=== PATIENT | female | born 1985 | race Caucasian/White ===

== ENCOUNTER → 2017-11-09 08:47 | Outpatient (CLI) | payer OTHER, SELFPAY ==
[2017-11-09 10:48] LABS: Hemoglobin 11.9 g/dl (12.0-15.0); Mean Corpuscular Hgb 30.6 pg (27.0-32.0); Mean Platelet Vol. 11.7 fl (6.2-12.0); Platelet Count 240 K/mm3 (150-450); RBC Distribution Width CV 13.8 % (11.6-14.6); RBC Distribution Width SD 44.2 fl (35.1-43.9); Red Blood Count 3.89 M/mm3 (4.2-5.4)
[2017-11-09 10:49] LABS: Scan Indicated on CBC? Y/N NO
[2017-11-09 10:53] LABS: Glucose Challenge Gest 1H 50g 67 mg/dL (70-140)
== END ==
PROVIDERS: Visit Provider Obstetrics & Gynecology
DX: Z34.83 Encounter for supervision of other normal pregnancy, third trimester (principal)
CPT/HCPCS: 36415; 82950; 85027; 86850

== ENCOUNTER → 2018-01-01 10:21 | Outpatient (CLI) | payer OTHER, SELFPAY ==
[2018-01-01 13:14] LABS: Probe Check PASS
[2018-01-01 13:15] LABS: Group B Strep DNA By PCR POSITIVE (Negative)
== END ==
PROVIDERS: Visit Provider Obstetrics & Gynecology
DX: Z36.85 Encounter for antenatal screening for Streptococcus B (principal)
CPT/HCPCS: 87653

== ENCOUNTER 2018-01-14 23:43 | Inpatient (IN) | payer OTHER, SELFPAY ==
[2018-01-14 23:20] VITALS: BMI 28.0
[2018-01-14 23:37] LABS: ROM Internal Control Test YES-OK TO RESULT pt. (Internal QC); ROM Patient Test POSITIVE (Negative)
[2018-01-15 00:22] LABS: Hematocrit 35.7 % (37-47); Hemoglobin 12.3 g/dl (12.0-15.0); Mean Corp Hgb Conc 34.5 g/gl (32-36); Mean Corpuscular Hgb 30.9 pg (27.0-32.0); Mean Corpuscular Volume 89.7 fL (81-99); Mean Platelet Vol. 11.4 fl (6.2-12.0); Platelet Count 203 K/mm3 (150-450); RBC Distribution Width CV 13.6 % (11.6-14.6); Red Blood Count 3.98 M/mm3 (4.2-5.4); White Blood Count 12.4 K/mm3 (4.4-11.0)
[2018-01-15 00:23] LABS: Scan Indicated on CBC? Y/N NO
[2018-01-15] MEDS: Lactated Ringers 1,000 ML 50 ML IV ×3 (01:00→07:16)
[2018-01-15] MEDS: fentaNYL-bupivacaine (epidural) 100 ML BAG EPIDURAL ×3 (01:05→10:14)
[2018-01-15] MEDS: Oxytocin 30 units/NS 500 ml 30 UNITS/500 ML IV.SOLN IV (03:05)
--- NOTE | 2018-01-15 12:09 | PCM.OB.VAG ---
Vaginal Delivery Maternal Presentation: Spontaneous Rupture of Membranes 38 wk SROM Method of Induction: Pitocin Medical Reason for Induction: Premature Rupture of Membranes Amniotic Membrane Rupture Type: Spontaneous at home Amniotic Fluid Description: Clear Final GRACE: 01/29/18 Gestational age: 38 Weeks and 1 Days Date of Procedure: 01/15/18 Pre-Operative Diagnosis: 38 wk SROM Post-Operative Diagnosis: Same S/P Surgery/ Procedure Performed: Spontaneous Vaginal Delivery Type of Anesthesia: Epidural Description of Procedure: of a koenig viable male Ap 8/9 Head delivered GIANNA. nuchal cord x two reduced at delivery. OP and nares bulb suctioned after delivery. Infant to maternal abdomen. Cord clamped x two and cut. PP exam; 2nd perineal laceration. Repaired under epidural to hemostatic, intact with 3/0 vicryl Placenta delivered intact, normal appearing. 3V cord, trailing membranes. EBL 300 cc Presentation: Vertex, GIANNA Placental Delivery Description: Spontaneous, Expressed Placenta Disposition: [facility] Cord Vessel Description: 3 Vessels Nuchal Cord Compression: Without compression Cord Entanglement: Around neck x 2, loose Drain: Farris to straight drain Infant A gender: Male (1 minute): 8 (5 minute): 9 Episiotomy Description: None Laceration: Midline, Perineal Extension/lac, 2nd degree Medications given after delivery: IV Pitocin Complications: None
[2018-01-15 15:51] VITALS: BP 102/56; PULSE 72; RESP 18; TEMP 36.8; O2SAT 95
[2018-01-15] MEDS: Ibuprofen 600 MG Tablet PO ×2 (16:02→22:37)
[2018-01-15 19:42] VITALS: BP 109/51; PULSE 79; RESP 16; TEMP 36.3; O2SAT 96
[2018-01-15] MEDS: Acetaminophen 500 MG Tablet 1000 MG PO (19:43)
[2018-01-16 00:05] VITALS: BP 99/68; PULSE 76; RESP 16; TEMP 36.2
[2018-01-16] MEDS: Acetaminophen 500 MG Tablet 1000 MG PO (03:51)
[2018-01-16 04:00] VITALS: BP 91/53; PULSE 69; RESP 16; TEMP 36.3
--- NOTE | 2018-01-16 06:45 | PCM.DCVAG ---
Discharge Diet: No Restrictions Discharge Activity: May Shower, May Take a Tub Bath May resume sexual activity in: 4-6 weeks Additional Activity Instructions:: Nothing in the vagina for 4-6 weeks. You may return to work/school in 6 weeks. Additional Instructions: If you experience any of the following, contact your healthcare provider. Bleeding that soaks a pad every hour for 2 hours Fever 100.4 or higher Unrelieved abdominal pain Problems urinating (including inability to urinate or burning while urinating). Visual changes Severe headache Flu-like symptoms Pain or redness in one of both of your breasts Pain, warmth, tenderness or swelling in your legs, especially the calf area Frequent nausea and vomiting Symptoms of depression or anxiety If you experience any of the following, call 911 or go to the nearest Emergency Room. Chest pain Problems breathing Seizure activity Partial or complete paralysis of a body part, slurred speech, weakness or drooping of the face, or a sudden inability to walk or hold your balance Allergies/Adverse Reactions: Allergies No Known Allergies Allergy (Verified 01/14/18 23:37) Medications to take at Discharge Calcium Carbonate/Vitamin D3 [Calcium 500 mg Chewable Tablet] 1 each PO DAILY 01/14/18 Vits [Prenatabs FA] 1 tablet PO DAILY 01/14/18 Please Follow Up With: Erin Ballesteros MD - [phone] When: Call to make an appointment with your doctor in 6 weeks. Primary Care Physician: Care Physician,No Primary [Primary Care Provider] - Test Results: Test results from this visit will be discussed in further detail at your follow-up appointment, if applicable. Proposed Discharge Date: 01/17/18
--- NOTE | 2018-01-16 06:46 | DCINST_ITS ---
Discharge Diet: No Restrictions Discharge Activity: May Shower, May Take a Tub Bath May resume sexual activity in: 4-6 weeks Additional Activity Instructions:: Nothing in the vagina for 4-6 weeks. You may return to work/school in 6 weeks. Additional Instructions: If you experience any of the following, contact your healthcare provider. * Bleeding that soaks a pad every hour for 2 hours * Fever 100.4 or higher * Unrelieved abdominal pain * Problems urinating (including inability to urinate or burning while urinating) . * Visual changes * Severe headache * Flu-like symptoms * Pain or redness in one of both of your breasts * Pain, warmth, tenderness or swelling in your legs, especially the calf area * Frequent nausea and vomiting * Symptoms of depression or anxiety If you experience any of the following, call 911 or go to the nearest Emergency Room. * Chest pain * Problems breathing * Seizure activity * Partial or complete paralysis of a body part, slurred speech, weakness or drooping of the face, or a sudden inability to walk or hold your balance Allergies/Adverse Reactions: Allergies No Known Allergies Allergy (Verified 01/14/18 23:37) Medications to take at Discharge Calcium Carbonate/Vitamin D3 [Calcium 500 mg Chewable Tablet] 1 each PO DAILY Vits [Prenatabs FA] 1 tablet PO DAILY 01/14/18 Please Follow Up With: Erin Ballesteros MD - [phone] When: Call to make an appointment with your doctor in 6 weeks. Primary Care Physician: Care Physician,No Primary [Primary Care Provider] - Test Results: Test results from this visit will be discussed in further detail at your follow- up appointment, if applicable. Proposed Discharge Date: 01/17/18
[2018-01-16] MEDS: Ibuprofen 600 MG Tablet PO ×2 (07:02→14:33)
--- NOTE | 2018-01-16 07:14 | PCM.PN.OB ---
Subjective: PPD#1 Doing well. Minimal pain, more with nursing. baby is nursing OK but not very regularly yet. open to bottle feeding if needed. No concerns voiced. Hoping to go home today if baby is released. - Physical Exam General: Alert, Oriented x3, Cooperative, No apparent distress HEENT: Atraumatic Neck: Supple Abdomen: Soft - Fundus firm NT at approx 1 cm inferior to umbilicus Neurological: Cranial nerves II-XII grossly intact Psych/Mental Status: Normal Affect Vital Signs Temp Pulse Resp BP Pulse Ox 97.3 F L 69 16 91/53 L 96 01/16/18 04:00 01/16/18 04:00 01/16/18 04:00 01/16/18 04:00 01/15/18 19:42 Oxygen Delivery Method Room Air Weight: 78.8 kg Body Mass Index (BMI) 28.0 Intake and Output for Last 24 Hours 01/14/18 01/15/18 01/16/18 23:59 23:59 23:59 Intake Total 5607 / 5607 Output Total 2300 / 2300 Balance 3307 / 3307 Laboratory Tests Past 24 Hrs 01/15/18 12:55 Screen NEGATIVE Baby's Blood Type O POSITIVE Baby's GORDON NEGATIVE Medical Necessity - Tobacco Use Smoking Status: Never smoker Assessment/Plan All Active Problems Missed (Acute) PPD#1 Stable Dischg home today if baby is released. RTO in 6 wk for pp check prn sooner.
[2018-01-16 08:20] VITALS: BP 108/57; PULSE 70; RESP 20; TEMP 36.2; O2SAT 98
[2018-01-16] MEDS: Prenatal Vits Tablet 1 TABLET PO (10:33)
[2018-01-16 14:35] VITALS: BP 111/64; PULSE 72; RESP 18; TEMP 36.3; O2SAT 96
== END 2018-01-16 14:35 | disposition home or self-care (01) | DRG 775 ==
LOC: WPOUT 23:45
PROVIDERS: Obstetrics & Gynecology; Admitting Provider Obstetrics & Gynecology; Visit Provider Obstetrics & Gynecology
DX: O69.1XX0 Labor and delivery complicated by cord around neck, with compression, not applicable or unspecified (principal); Z37.0 Single live birth; O70.1 Second degree perineal laceration during delivery; Z3A.38 38 weeks gestation of pregnancy; O42.92 Full-term premature rupture of membranes, unspecified as to length of time between rupture and onset of labor; O99.820 Streptococcus B carrier state complicating pregnancy
CPT/HCPCS: 59025; 59050; 84112; 85027; 85461; 86850; 86900; 90384; 99218; J7120; G0378; J0290; J2790

== ENCOUNTER → 2019-06-10 17:33 | Outpatient (CLI) | payer OTHER, SELFPAY ==
[2019-06-14 20:07] LABS: Age Gdln ACOG Testing 30-65 (.)
[2019-06-14 20:34] LABS: HPV APTIMA, High Risk Negative (Negative); HPV Reflexed? YES, CHARGE PATIENT
== END ==
PROVIDERS: Referring Provider Obstetrics & Gynecology; Visit Provider Obstetrics & Gynecology
DX: Z12.4 Encounter for screening for malignant neoplasm of cervix (principal)
CPT/HCPCS: 87624; 88175; G0145

== ENCOUNTER → 2020-05-23 09:27 | Outpatient (CLI) | payer OTHER, SELFPAY ==
[2020-04-19 11:36] VITALS: BMI 28.8
[2020-05-23 10:21] LABS: Progesterone Level 20.78 ng/mL (See Comment)
== END ==
PROVIDERS: Referring Provider Nurse Practitioner Women's Health; Visit Provider Nurse Practitioner Women's Health
DX: N97.0 Female infertility associated with anovulation (principal)
CPT/HCPCS: 36415; 84144

== ENCOUNTER → 2020-07-26 10:43 | Outpatient (CLI) | payer OTHER, SELFPAY ==
[2020-07-26 09:55] VITALS: BMI 28.0
[2020-07-26 10:58] LABS: Absolute Neutrophil Count 7.6 X10^3/uL (2.0-7.7); Basophil# 0.03 X10^3/uL; Basophil% 0.3 % (0-1); Eosinophil# 0.08 X10^3/uL; Eosinophils% 0.8 % (0-5); Hematocrit 40.4 % (37-47); Hemoglobin 13.6 g/dL (12.0-15.0); Lymphocyte % 13.6 % (19-41); Mean Corp Hgb Conc 33.7 g/dL (32-36); Mean Corpuscular Hgb 29.5 pg (27.0-32.0); Mean Corpuscular Volume 87.6 fL (81-99); Mean Platelet Vol. 10.4 fl (6.2-12.0); Monocyte# 0.52 X10^3/uL; Monocyte% 5.4 % (0-10); NRBC Flagged by Analyzer 0 % (0-5); Neutrophil % 79.6 % (47-70); Platelet Count 301 K/mm3 (150-450); RBC Distribution Width CV 12.4 % (11.6-14.6); RBC Distribution Width SD 39.7 fl (35.1-43.9); Red Blood Count 4.61 M/mm3 (4.2-5.4); White Blood Count 9.6 K/mm3 (4.4-11.0)
[2020-07-26 12:36] LABS: HIV - WCH Non-Reactive (Nonreactive); Hepatitis B Surface Antigen Non-Reactive (Nonreactive); Hepatitis C Antibody Non-Reactive (Nonreactive); Rubella IgG Reactive (Nonreactive)
[2020-07-26 14:25] LABS: Amphetamine Urine VISTA NEGATIVE (<1000 ng/mL); Barbiturate Urine VISTA NEGATIVE (< 200 ng/mL); Benzodiazepine Urine VISTA NEGATIVE (< 200 ng/mL); Cocaine Urine VISTA NEGATIVE (< 300 ng/mL); Ecstacy Urine VISTA NEGATIVE (< 500 ng/mL); Methadone Urine VISTA NEGATIVE (< 300 ng/mL); PCP Urine VISTA NEGATIVE (< 25 ng/mL); THC Urine VISTA NEGATIVE (< 50 ng/mL); Vista UDS pH Range 6
[2020-08-02 01:40] LABS: Rapid Plasmin Reagin (RPR) NONREACTIVE (NONREACTIVE)
== END ==
PROVIDERS: Referring Provider Obstetrics & Gynecology; Visit Provider Obstetrics & Gynecology
DX: Z34.80 Encounter for supervision of other normal pregnancy, unspecified trimester (principal)
CPT/HCPCS: 36415; 80307; 85025; 86592; 86703; 86762; 86803; 86850; 86900; 86901; 87086; 87340

== ENCOUNTER → 2020-09-03 | Outpatient (CLI) | payer OTHER, SELFPAY ==
[2020-09-03 11:38] VITALS: BMI 26.8
[2020-09-06 07:07] LABS: Chlamydia By Nucleic Acid AMP Negative (Negative)
[2020-09-06 08:29] LABS: Gonococcus By Nucleic Acid AMP Negative (Negative)
== END | disposition home or self-care (01) ==
LOC: LABSPEC 12:30
PROVIDERS: Referring Provider Nurse Practitioner Women's Health; Visit Provider Nurse Practitioner Women's Health
DX: Z34.80 Encounter for supervision of other normal pregnancy, unspecified trimester (principal)
CPT/HCPCS: 87491; 87591

== ENCOUNTER → 2020-12-10 14:48 | Outpatient (CLI) | payer OTHER, SELFPAY ==
[2020-11-26 15:06] VITALS: BMI 28.4
[2020-12-10 15:09] LABS: Absolute Lymphocyte Count 1.38 X10^3/uL (0.83-4.51); Absolute Neutrophil Count 7.2 X10^3/uL (2.0-7.7); Basophil# 0.03 X10^3/uL; Basophil% 0.3 % (0-1); Eosinophil# 0.07 X10^3/uL; Eosinophils% 0.8 % (0-5); Hematocrit 33.2 % (37-47); Hemoglobin 11.2 g/dL (12.0-15.0); Lymphocyte # 1.38 X10^3/ul (0.83-4.51); Lymphocyte % 14.9 % (19-41); Mean Corp Hgb Conc 33.7 g/dL (32-36); Mean Platelet Vol. 11.1 fl (6.2-12.0); Monocyte# 0.54 X10^3/uL; Monocyte% 5.8 % (0-10); NRBC Flagged by Analyzer 0 % (0-5); Neutrophil # 7.16 X10^3/uL (2.7-7.7); Neutrophil % 77.4 % (47-70); Platelet Count 268 K/mm3 (150-450); RBC Distribution Width CV 13.7 % (11.6-14.6); Red Blood Count 3.73 M/mm3 (4.2-5.4); White Blood Count 9.3 K/mm3 (4.4-11.0)
[2020-12-10 15:17] LABS: Glucose Challenge Gest 1H 50g 107 mg/dL (70-140)
[2020-12-10 15:49] LABS: Thyroid Stim Hormone (TSH) 0.41 uIU/mL (0.358-3.74)
== END ==
PROVIDERS: Nurse Practitioner Women's Health; Referring Provider Obstetrics & Gynecology; Visit Provider Obstetrics & Gynecology
DX: O26.899 Other specified pregnancy related conditions, unspecified trimester (principal); Z67.91 Unspecified blood type, Rh negative; Z13.29 Encounter for screening for other suspected endocrine disorder; Z3A.00 Weeks of gestation of pregnancy not specified
CPT/HCPCS: 36415; 82950; 84443; 85025; 86850; 86900; 86901

== ENCOUNTER → 2021-02-01 14:42 | Outpatient (CLI) | payer OTHER, SELFPAY ==
[2021-02-01 14:02] VITALS: BMI 29.0
[2021-02-02 11:03] LABS: Kleihauer-Betke Negative
== END ==
PROVIDERS: Referring Provider Obstetrics & Gynecology; Visit Provider Obstetrics & Gynecology
DX: S39.91XA Unspecified injury of abdomen, initial encounter (principal)
CPT/HCPCS: 36415; 85460; 86850; 86870; 86900; 86901

== ENCOUNTER 2021-02-11 06:55 | Outpatient (CLI) | payer OTHER, SELFPAY ==
[2021-02-01 14:02] VITALS: BMI 29.0
[2021-02-11 07:05] VITALS: BMI 28.8
[2021-02-11 07:12] VITALS: BP 124/74; PULSE 114; TEMP 36.7
--- NOTE | 2021-02-11 08:42 | OB.TRI.PN ---
Progress Notes Date of Service: 02/11/21 Progress Note: Patient presents for triage evaluation secondary to contractions. Cervix 3cm on arrival. Unchanged on recheck and contractions spaced out from every 5-7 to every 10-15 minutes FHT: Moderate variability reactive no decelerations category I tracing [place]: q5-15min Contractions Assessment and plan: Reactive NST, reassuring maternal and status patient discharged to home to follow-up at next scheduled visit. See problem list details for additional plan information. Charges/Coding Procedures Urinary/Genital 52xxx-59xxx: 59589-59 non-stress test Interp
== END 2021-02-11 08:55 | disposition home or self-care (01) ==
LOC: WPOUT 07:02 → WP 07:02
PROVIDERS: Referring Provider Obstetrics & Gynecology; Visit Provider Obstetrics & Gynecology
DX: O62.9 Abnormality of forces of labor, unspecified (principal); Z3A.00 Weeks of gestation of pregnancy not specified
CPT/HCPCS: 59025; 59050; 99218; G0378

== ENCOUNTER → 2021-02-11 | Outpatient (CLI) | payer OTHER, SELFPAY ==
[2021-02-11 09:06] VITALS: BMI 28.8
== END | disposition home or self-care (01) ==
PROVIDERS: Visit Provider Obstetrics & Gynecology
DX: Z34.80 Encounter for supervision of other normal pregnancy, unspecified trimester (principal)
CPT/HCPCS: 87077; 87081; 87186

== ENCOUNTER 2021-02-17 04:25 | Outpatient (CLI) | payer OTHER, SELFPAY ==
[2021-02-11 09:06] VITALS: BMI 28.8
[2021-02-17 04:45] VITALS: TEMP 36.7
[2021-02-17 04:46] VITALS: BP 133/70; PULSE 112
[2021-02-17 04:57] VITALS: BMI 28.8
--- NOTE | 2021-02-18 09:19 | OB.TRI.PN ---
Progress Notes Date of Service: 02/17/21 Progress Note: Patient presents for triage evaluation secondary to contractions. Cervix unchanged from in office and unchanged on recheck. FHT: Moderate variability reactive no decelerations category I tracing [place]: q7-10 Contractions Assessment and plan: Reactive NST, reassuring maternal and status patient discharged to home to follow-up next scheduled visit. See problem list details for additional plan information. Charges/Coding Procedures Urinary/Genital 52xxx-59xxx: 74924-60 non-stress test Interp
== END 2021-02-17 07:23 | disposition home or self-care (01) ==
LOC: WPOUT 04:31 → WP 04:32
PROVIDERS: Visit Provider Obstetrics & Gynecology
DX: O62.9 Abnormality of forces of labor, unspecified (principal); Z3A.00 Weeks of gestation of pregnancy not specified
CPT/HCPCS: 59025; 59050; 99218; G0378

== ENCOUNTER 2021-02-25 07:00 | Inpatient (IN) | payer OTHER, SELFPAY ==
[2021-02-25] VITALS (38 sets, daily range): BP systolic 96–121; BP diastolic 56–74; PULSE 60–90; RESP 16–18; TEMP 36.3–37.1; O2SAT 98–99; BMI 29.3
[2021-02-25] MEDS: Lactated Ringers 1,000 ML 50 ML IV (07:40)
[2021-02-25] MEDS: Oxytocin 30 units/NS 500 ml 30 UNITS/500 ML IV.SOLN IV (08:10)
[2021-02-25 08:11] LABS: Absolute Lymphocyte Count 1.39 X10^3/uL (0.83-4.51); Basophil# 0.03 X10^3/uL; Basophil% 0.3 % (0-1); Eosinophil# 0.05 X10^3/uL; Eosinophils% 0.5 % (0-5); Hematocrit 33.8 % (37-47); Hemoglobin 11.3 g/dL (12.0-15.0); Lymphocyte # 1.39 X10^3/ul (0.83-4.51); Lymphocyte % 15.2 % (19-41); Mean Corp Hgb Conc 33.4 g/dL (32-36); Mean Corpuscular Hgb 29.5 pg (27.0-32.0); Mean Corpuscular Volume 88.3 fL (81-99); Mean Platelet Vol. 12.1 fl (6.2-12.0); Monocyte# 0.56 X10^3/uL; Monocyte% 6.1 % (0-10); NRBC Flagged by Analyzer 0 % (0-5); Neutrophil # 7.01 X10^3/uL (2.7-7.7); Neutrophil % 76.9 % (47-70); Platelet Count 231 K/mm3 (150-450); RBC Distribution Width CV 13.5 % (11.6-14.6); RBC Distribution Width SD 43.7 fl (35.1-43.9); Red Blood Count 3.83 M/mm3 (4.2-5.4); White Blood Count 9.1 K/mm3 (4.4-11.0)
[2021-02-25] MEDS: Lactated Ringers 500 ML 999 ML IV (10:03)
[2021-02-25] MEDS: fentaNYL-bupivacaine (epidural) 100 ML BAG EPIDURAL (10:55)
[2021-02-25] MEDS: Oxytocin 30 units/NS 500 ml 30 UNITS/500 ML IV.SOLN 334 UNITS IV (11:45)
[2021-02-25] MEDS: Naproxen 500 MG Tablet PO ×2 (13:09→22:46)
--- NOTE | 2021-02-25 17:22 | HP.PCM_ITS ---
History and Physical Date of Admission: 02/25/21 Vital Signs 02/21/21 11:58 02/21/21 12:00 Height 5 ft 6 in Weight: 181 lb 6 oz BMI 29.2 28.8 BP 108/60 Intake Visit Reasons: Membrane sweep Allergies No Known Allergies Allergy (Verified 02/21/21 11:58) Medications multivitamin 1 tab PO DAILY 04/19/20 [History Confirmed 02/21/21] Last Menstral Period: 05/27/20 Zika: Zika virus screening: Negative : No PFSH PFSH Medical History Positive GBS test Surgical History H/O dilation and curettage History of adenoidectomy History of tonsillectomy S/p bilateral myringotomy with tube placement Family History Grandfather Heart disease Dementia Grandmother CVA (cerebral vascular accident) Bladder cancer Dementia Social History household members: spouse and children number of children: 2 current occupational status: employed current occupation: book keeper history of recent travel: Yes out of state: Yes sexually active: Yes Smoking Status: Never smoker alcohol intake: current alcohol intake frequency: a few times a week substance use type: does not use what type of physical activity do you participate in: aerobics seatbelt use: always do you feel safe at home: Yes additional social history: - Beka Pregancy History 4 Elective abortions Hx Para 2 Spontaneous abortions 1 Hx # Term Pregnancies Ectopic pregnancies Hx # Pregnancies Multiple births # of living children 2 Past Pregnancies Del. Date Name GA/Weeks Outcome Route Bth Weight Infant Gen Labor Lgth Anesthesia Del Locatn Provider FOB 06/21/15 Alejandro 39 live - full term 6lbs 14oz Male 13 hrs epidural [facility] Luis Ireland 01/15/18 Phillip 38 live - full term 6lbs 5oz Male 14 hrs epidural [facility] Favian Ireland Delivery Date: 06/21/15 small 1st degree laceration; nuchal cordx1 loose Erin Brooke Delivery Date: 01/15/18 2 degree laceration; nuchal cordx2 w/o compression Erin Brooke HPI Membrane sweep Details: RAUL CLARK is a 35 year old who presents for induction of labor secondary to social reasons with work restrictions. OB Visit GRACE Calculator Estimated Delivery Date Method Current WG Current Estimate 03/03/21 LMP (Certain) 38w 4d Other Estimates 03/03/21 Ultrasound #1 38w 4d Expected Delivery Route/Plan , patient desires social IOL at 39 if able due to work restrictions Labor Preferences- CB/BF classes: no labor support person: Davion labor intervention preferences: open to standard interventions pain management options preferred: epidural cut cord/dad catch: cord : no PP control planned: vasectomy planned discussed possible routes of delivery and associated risks: [] special requests: [] Specific Issue/Plans flu vaccine: no tdap vaccine: given rhogam: given 6/7 LARC form signed: yes movement and labor precautions reviewed. Problem list reviewed and updated with the most current plan of care details and appropriate orders placed. Relevant counseling for the gestational age provided. Continue routine care and follow up unless otherwise noted in visit notes/problem list details Initial Weight: 174 lb Date EGA Weight BP Urine Prot Glucose FHR FuHt Pres Dilation Effaced St Visit Note 07/26/20 8w 4d 174 lb (+0 oz) 120/82 170 GP - CRL 17mm consistent with LMP. 08/09/20 10w 4d 173 lb 2 oz (-14 oz) 130/86 Negative Negative 163 GP - no cramping or bleeding. HILARY resolved on ultrasound. 09/03/20 14w 1d 166 lb 2 oz (-7 lb 14 oz) 100/60 Negative Negative 160 MH-No VB, LOF. GI refulx. Start pepcid. MFM anatomy US ordered. TSH and GCC 10/03/20 18w 3d 170 lb (-4 lb) 120/80 Negative Negative GP - no LOF, VB, DFM, ctx. Still having some reflux, but doing better. Sister is due 5 weeks after her so hoping for 39 week induction to optimize maternity leave time. 10/29/20 22w 1d 176 lb (+2 lb) 120/86 Negative Negative 150 SM- no vb lof good fm no ctx 11/26/20 26w 1d 175 lb (+16 oz) 120/86 150 26 GP - no LOF, VB, DFM, ctx. GCT and rhogam next visit. Needs TSH drawn at same time. 12/10/20 28w 1d 177 lb 8 oz (+3 lb 8 oz) 110/70 Negative Negative 141 28 MH-No VB, LOF. Good FM. Rhogam given. Larc. 28wk labs. 12/24/20 30w 1d 179 lb (+5 lb) 112/82 Negative Negative 140 30 SM- no vb lof good fm, no regular ctx 01/14/21 33w 1d 179 lb 8 oz (+5 lb 8 oz) 112/74 Negative Negative 130 33 GP - no LOF, VB, DFM, ctx. Just went on vacation to [place] in [place]. 01/28/21 35w 1d 182 lb (+8 lb) 112/70 Negative Negative 160 35 Cephalic SM- no vb lof good fm nor egular ctx 02/01/21 35w 5d 179 lb (+5 lb) 122/84 155 Cephalic 2 20 -2 SM- feel on buttox yesterday, no vb lof good fm some ctx and pelvic pressure. labs ordered today 02/11/21 37w 1d 179 lb (+5 lb) 108/74 Negative Negative 150 37 Cephalic 3 80 -2 GP - no LOF, VB, DFM. Seen in triage this am due to contractions. GBS collected. Membranes swept today. 02/18/21 38w 1d 182 lb (+8 lb) 102/66 150 38 Cephalic SM- no vb lof good fm no reuglar ctx 02/21/21 38w 4d 181 lb 6 oz (+7 lb 6 oz) 108/60 Negative Negative 149 38 Cephalic 4 70 -1 SM- no vb lof good fm no regular ctxplan IOL elective thursday ACOG First Trimester First Trimester: Desire for , Alcohol, Tobacco Cessation, Illicit/Recreational Drug/Substance Use, Intimate Partner Violence, Barriers to care, Unstable Housing, Communication Barriers, Environmental/Work Hazards, Anticipated Course of Care, Toxoplasmosis Precations, Use of Any medications, Sexual activity, Exercise, Dental Care, Sauna/Hot tub use, Seat Belt use, Childbirth classes/Hospital facilities, , Travel, Indications for Ultrasound and Screening for Aneuploidy Second Trimester Second Trimester: Signs and Symptoms of Labor, Selecting a care provider, Reproductive Life Planning & Contreception, Care Planning, Depression/Anxiety and Intimate Partner Violence; Discussed Tobacco Cessation Third Trimester Third Trimester: Pain Management Plans, Labor support person(s), Immediate Larc, Circumcision preference and Signs and Symptoms of Preeclampsia Diagnostics Diagnostics Diagnostics: Blood Type A NEGATIVE Antibody Screen POSITIVE H Glucose 1 Hr 50 gm 107 mg/dL (70-140) Hgb 11.2 g/dL (12.0-15.0) L Hct 33.2 % (37-47) L Details: HIV: Urine Culture: Sequential Screen: NIPT Screen: ROS Const Reports system reviewed and no additional complaints, except as documented Card Reports system reviewed and no additional complaints, except as documented Resp Reports system reviewed and no additional complaints, except as documented GI Reports system reviewed and no additional complaints, except as documented and Reports nausea Reports system reviewed and no additional complaints, except as documented Musc Reports system reviewed and no additional complaints, except as documented Exam Const General: cooperative, healthy appearing, comfortable and anxious HENMT Head: normal to inspection Nose: external nose normal Face and sinus: normal facial exam Neck Neck: normal visual inspection, full ROM and no lymphadenopathy Thyroid: thyroid normal Chest Chest palpation & inspection: normal inspection of the chest Resp Effort & Inspection: normal respiratory effort GI Inspection: normal to inspection Palpation: soft and other (gravid uterus) Other: vertex and appropriate size for gestational age Other: Cervical Exam: Extrem General: pedal edema Results POC Urinalysis 2 Dip (Clinic) Office Urine Glucose Negative Last Edit by Sonya Amato on 02/21/21 12:02 Office Urine Protein Negative Last Edit by Sonya Amato on 02/21/21 12:02 Coding Level of Care Code OB Routine Diagnoses Z3A.37 Weeks of gestation: 37 weeks Supervision of other normal Z34.80 Rh negative status during O26.899; Z67.91 Positive GBS test B95.1 Assessment and Plan Assessment and Plan (1) : Status: Acute Qualifiers: Weeks of gestation: 37 weeks Qualified Code(s): Z3A.37 - 37 weeks gestation of Comment: declines genetic and carrier testing; NL anatomy (2) Supervision of other normal : Status: Acute Comment: PRR GRACE: 03/03/21 boy PC: Jordi Allen Spouse: Beka (3) Rh negative status during : Status: Acute Comment: rhogam at 28 and PRN. no addtnl rhogam needed KB negative (4) Positive GBS test: Status: Acute Plan Details Other Orders: Orders: POC Urinalysis 2 Dip (Clinic) Today 02/21/21 121
--- NOTE | 2021-02-25 17:24 | OP.PCM_ITS ---
Assessment & Plan (1) Positive GBS test: (2) Rh negative status during : COMMENT: rhogam at 28 and PRN. no addtnl rhogam needed KB negative (3) Supervision of other normal : COMMENT: PRR GRACE: 03/03/21 boy PC: Jordi Allen Spouse: Beka (4) : QUALIFIERS: Weeks of gestation: 37 weeks Qualified Code(s): Z3A.37 - 37 weeks gestation of COMMENT: declines genetic and carrier testing; NL anatomy (5) Vaginal delivery: COMMENT: boy 39 SM Maternal Data Information GRACE Calculator Estimated Delivery Date Method Current WG Current Estimate 03/03/21 LMP (Certain) 39w 1d Other Estimates 03/03/21 Ultrasound #1 39w 1d Vaginal Delivery Operative Information Date of Procedure: 02/25/21 Pre-Operative Diagnosis: iol elective Post-Operative Diagnosis: same Surgery / Procedure Performed: Spontaneous Vaginal Delivery Type of Anesthesia: Epidural Special Medications: none Estimated Blood Loss: 100 Fluids Replaced: crystalloid Findings Description of Procedure: Patient began pushing and delivered the head in the GIANNA presentation. The head was delivered atraumatically and a loose nuchal cord ?1 was identified and the infant delivered through without complication. The anterior and posterior shoulders delivered without complication followed by the rest of the and the was placed on the maternal abdomen. Delayed cord clamping was employed for approximately 60 seconds. Cord was clamped and cut and gentle traction was applied to the cord and the placenta delivered spontaneously immediately following it was noted to be intact with three-vessel cord. The perineum and vagina were inspected and noted to have a small first- degree perineal laceration repaired with 3-0 Vicryl Rapide. EBL was 100 cc. Patient and tolerated delivery well. Presentation: GIANNA Amniotic Membrane Rupture Type: Artificial Amniotic Fluid Description: Clear Placental Delivery Description: Spontaneous Placenta Disposition: [facility] Cord Vessel Description: 3 Vessels Cord Entanglement: None Delayed Cord Clamping: Yes Post Vaginal Delivery Medications Given After Delivery: IV Pitocin Episiotomy Description: None Laceration: Perineal Extension/lac and 1st degree Complication Complications: None Procedures Urinary/Genital 52xxx-59xxx: [id number] Vaginal Delivery [facility]
--- NOTE | 2021-02-25 17:29 | PCM.DC ---
Discharge Instructions Diet Discharge Diet: No restrictions Activity Discharge Activity: Return to Normal Activity, May Not Drive (while taking narcotic pain medications.) and May Shower May resume sexual activity in: 4-6 weeks Dressing / Incision Call your doctor if your incision/area has: Continuous Slow Oozing, Sudden Increased Bleeding, Increased Pain/ Swelling, Increased Redness and Foul Smelling Discharge Follow Up Care Please Follow Up With: Luz Kearney MD When: Call [phone] to make an appointment with your doctor in 6 weeks. If you had elevated blood pressure or 4th degree laceration, you will need to be seen in 2 weeks. Test Results: Test results from this visit will be discussed in further detail at your follow-up appointment, if applicable. Discharge Plan Admission Admit Date/Time: 02/25/21 07:00 Primary Reason for Your Visit: vaginal delivery Attending Provider: Luz Kearney Primary Care Provider: Care Physician,Alena Primary Discharge Orders/Prescriptions Prescriptions: No Action multivitamin Tablet 1 tab PO DAILY RF: 0 famotidine [Pepcid AC] 20 mg Tablet 20 mg PO BID RF: 0 Referrals / Follow Up: Care Physician,No Primary [Primary Care Provider] - Disposition Disposition (needs filled in before D/C Order can be placed): Home, Self Care
[2021-02-25] MEDS: Acetaminophen 500 MG Tablet 1000 MG PO (19:52)
[2021-02-26 00:50] VITALS: BP 115/76; PULSE 77; RESP 18
[2021-02-26 04:16] VITALS: BP 96/54; PULSE 79; RESP 18; TEMP 36.2
--- NOTE | 2021-02-26 07:54 | PCM.PN.OB ---
Subjective Subjective Patient doing well without complaints. Tolerating PO. Ambulating and voiding without difficulty. Feeding well. Denies chest pain, shortness of breath, calf pain/swelling, fevers, chills, lightheadedness. Objective Data Objective Data Vital Signs: Vital Signs Temp Pulse Resp BP Pulse Ox 97.1 F L 79 18 96/54 L 98 02/26/21 04:16 02/26/21 04:16 02/26/21 04:16 02/26/21 04:16 02/25/21 12:21 Oxygen Delivery Method Room Air Weight: 182 lb Body Mass Index (BMI) 29.3 Intake & Output: Intake and Output for Last 24 Hours 02/24/21 02/25/21 02/26/21 23:59 23:59 23:59 Intake Total 1458.51 / 1458.51 Output Total 1300 / 1300 Balance 158.51 / 158.51 Lab / Micro Data Result Diagrams: 02/25/21 07:40 Labs: Laboratory Results - last 24 hr 02/25/21 07:40: WBC 9.1, RBC 3.83 L, Hgb 11.3 L, Hct 33.8 L, MCV 88.3, MCH 29.5, MCHC 33.4, RDW Std Deviation 43.7, RDW Coeff of Amaya 13.5, Plt Count 231, MPV 12.1 H, Immature Gran % (Auto) 1.000 H, Neut % (Auto) 76.9 H, Lymph % (Auto) 15.2 L, Swisher % (Auto) 6.1, Eos % (Auto) 0.5, Baso % (Auto) 0.3, Absolute Neuts (auto) 7.0, Absolute Lymphs (auto) 1.39, Nucleated RBC % 0 02/25/21 07:40: Blood Type A NEGATIVE, Antibody Screen NEGATIVE Micro: Microbiology 02/25/21 08:50 Mucosa - Nose SARS-CoV-2 Antigen (Rapid) - Final Physical Exam Const alert and oriented x3 HEENT normocephalic Eyes PERRL Neck full ROM Resp normal respiratory effort GI soft to palpation GI Narrative: FF below U Assessment & Plan (1) Vaginal delivery: COMMENT: boy Wu 39 SM (2) Rh negative, delivered, current hospitalization: PLAN: s/p PPD # 1 1. routine post delivery care 2. bottle feeding- support given 3. rh neative 4. rubella immune 5. home today
[2021-02-26 08:30] VITALS: BP 118/62; PULSE 80; RESP 16; TEMP 36.2
[2021-02-26] MEDS: Naproxen 500 MG Tablet PO (08:37)
[2021-02-26 14:36] VITALS: BP 120/61; PULSE 81; RESP 16; TEMP 36.2
== END 2021-02-26 14:51 | disposition home or self-care (01) | DRG 807 ==
PROVIDERS: Admitting Provider Obstetrics & Gynecology; Referring Provider Obstetrics & Gynecology; Visit Provider Obstetrics & Gynecology
DX: O69.81X0 Labor and delivery complicated by cord around neck, without compression, not applicable or unspecified (principal); Z37.0 Single live birth; O99.824 Streptococcus B carrier state complicating childbirth; O70.0 First degree perineal laceration during delivery; O26.893 Other specified pregnancy related conditions, third trimester; Z67.11 Type A blood, Rh negative; Z3A.39 39 weeks gestation of pregnancy
CPT/HCPCS: 59025; 59050; 85025; 86850; 86900; 86901; 87426; 99218; J7120; G0378; J3490